=== PATIENT | female | born 1955 | race Caucasian/White ===

== ENCOUNTER 2020-10-18 09:55 | Emergency (ER) | payer SELFPAY ==
[~2020-10-18] VITALS: Ht 157.5 cm; Wt 78.0 kg
[2020-10-18 10:22] VITALS: BP 150/95
== END 2020-10-18 12:44 | disposition home or self-care (01) ==
LOC: ED 11:00
DX: Z43.3 Encounter for attention to colostomy (principal)
CPT/HCPCS: 99281